=== PATIENT | female | born 1990 | race Hispanic/Latino ===

== ENCOUNTER 2021-04-18 23:26 | Inpatient (IN) | payer OTHER ==
[2021-04-18] MEDS ORDERED: Acetaminophen 325 MG TAB PO PRN (23:38)
[2021-04-18] MEDS ORDERED: Ondansetron ODT 4 MG TAB PO PRN (23:38)
[2021-04-19] MEDS: Lactated Ringer's 1,000 ML IV SCH ×3 (00:33→16:40)
[2021-04-19 00:46] VITALS: BMI 21.2
[2021-04-19] MEDS: Morphine 4 MG/ML VIAL SLOW IVP PRN ×3 (00:55→15:37)
[2021-04-19 02:32] LABS: SARS-CoV-2 NAA Rapid Test Not Detected (NotDetected)
[2021-04-19] MEDS: Prenatal Vitamin 1 TAB PO SCH (09:02)
[2021-04-19] MEDS ORDERED: Fentanyl 100 MCG/2 ML VIAL ONE (10:53)
[2021-04-19] MEDS ORDERED: PROPOFOL 20 ML ONE (10:53)
[2021-04-19] MEDS ORDERED: Midazolam HCl 2 mg/2 ml Vial ONE (10:54)
[2021-04-19] MEDS ORDERED: Glycopyrrolate 0.2 MG/ML 5 ML SYRINGE ONE (11:02)
[2021-04-19] MEDS ORDERED: Ondansetron PF 4 MG/2 ML Vial ONE ×2 (11:02→11:38)
[2021-04-19] MEDS ORDERED: Ketorolac Tromethamine 30 MG/ML VIAL ONE (11:38)
[2021-04-19] MEDS ORDERED: Dexamethasone 4 mg/ml Vial ONE (11:38)
[2021-04-19] MEDS ORDERED: CEFAZOLIN 1 GM VIAL ONE (11:55)
[2021-04-19] MEDS ORDERED: Promethazine HCl 25 MG/ML VIAL IVPB PRN (12:25)
[2021-04-19] MEDS ORDERED: Promethazine HCl 25 MG/ML VIAL IM PRN (12:25)
[2021-04-19] MEDS ORDERED: Ondansetron HCl/PF 4 MG/2 ML Vial IVP PRN (12:25)
[2021-04-19] MEDS ORDERED: Promethazine HCl 25 MG/ML VIAL ONE (12:41)
[2021-04-19] MEDS ORDERED: Morphine 4 MG/ML VIAL SLOW IVP SCH (22:15)
[2021-04-20] MEDS: Lactated Ringer's 1,000 ML IV SCH (04:16)
[2021-04-20] MEDS: Acetaminophen 325 MG TAB PO SCH ×2 (08:29→11:53)
[2021-04-20] MEDS: Prenatal Vitamin 1 TAB PO SCH (08:29)
[2021-04-20] MEDS ORDERED: FLU VACC QS2021-22(6MOS UP)/PF 60 MCG/0.5 ML SYRINGE IM ONE (09:00)
[2021-04-20] MEDS ORDERED: Morphine 4 MG/ML VIAL SLOW IVP SCH (09:00)
[2021-04-20] MEDS ORDERED: HYDROcodone/Acetaminophen 5/325 mg Tablet PO PRN (10:50)
[2021-04-20] MEDS ORDERED: Acetaminophen 325 MG TAB PO PRN (12:06)
[2021-04-20] MEDS: HYDROcodone/Acetaminophen 7.5/325 mg Tablet PO PRN ×2 (15:33→20:07)
[2021-04-20] MEDS ORDERED: Dicyclomine 20 MG TAB PO SCH (19:14)
[2021-04-20 22:11] LABS: Blood, Urine 250 (Negative); Clarity Bloody (Clear); Glucose, Urine (Dipstick) Normal (Negative); Protein, Urine (Dipstick) 100 mg/dl (Neg-Trace)
[2021-04-20 22:13] LABS: Leukocyte Unable to Interpret (Negative); Nitrite Unable to Interpret (Negative)
[2021-04-20 22:14] LABS: Bilirubin Unable to Interpret (Negative); Ketone, Urine Unable to Interpret mg/dL (Negative); Urobilinogen UNABLE TO INTERPRET mg/dL (Less than 2)
[2021-04-20 22:23] LABS: RBC/HPF Greater than 50 HPF (0-3)
[2021-04-20 22:24] LABS: Bacteria/HPF Rare-Few HPF (None Seen); Squamous Epithelial 0-3 HPF (0-3)
[2021-04-20 22:26] LABS: Urine Culture Reflex Yes Yes
[2021-04-21] MEDS ORDERED: Ketorolac Tromethamine 30 MG/ML VIAL IVP PRN (06:17)
[2021-04-21 07:46] VITALS: BP 101/55; TEMP 99.2
[2021-04-21] MEDS: Prenatal Vitamin 1 TAB PO SCH (08:31)
[2021-04-21] MEDS: Phenazopyridine HCl 97.5 MG TABLET PO SCH ×2 (08:31→14:51)
[2021-04-21] MEDS: HYDROcodone/Acetaminophen 7.5/325 mg Tablet PO PRN (08:31)
== END 2021-04-21 15:19 | disposition home or self-care (01) | DRG 818 ==
LOC: CSHPED 23:26
PROVIDERS: ADMIT Family Medicine; ATTEND Family Medicine
PROC: 0T768DZ Dilation of Right Ureter with Intraluminal Device, Via Natural or Artificial Opening Endoscopic (ICD-10-PCS; principal; 2021-04-19)
PROC: BT1D1ZZ Fluoroscopy of Right Kidney, Ureter and Bladder using Low Osmolar Contrast (ICD-10-PCS; 2021-04-19)
DX: O99.891 Other specified diseases and conditions complicating pregnancy (principal); N13.2 Hydronephrosis with renal and ureteral calculous obstruction; K21.9 Gastro-esophageal reflux disease without esophagitis; O99.611 Diseases of the digestive system complicating pregnancy, first trimester; Z20.822 Contact with and (suspected) exposure to COVID-19; Z3A.16 16 weeks gestation of pregnancy
CPT/HCPCS: 51600; 74430; 81001; 87086; 94760; C2625; J0690; J1100; J1885; J2250; J2270; J2405; J2550; J2704; J3010; J7120; Q0162; U0002

== ENCOUNTER 2021-05-01 19:22 | Observation (INO) | payer OTHER ==
[2021-05-01 19:49] VITALS: BMI 22.3
[2021-05-01] MEDS ORDERED: FLU VACC QS2021-22(6MOS UP)/PF 60 MCG/0.5 ML SYRINGE IM ONE (20:00)
[2021-05-01] MEDS ORDERED: Promethazine HCl 25 MG/ML VIAL IM PRN (20:10)
[2021-05-01] MEDS ORDERED: hydrALAZINE 20 MG/ML VIAL SLOW IVP PRN (20:10)
[2021-05-01] MEDS ORDERED: Ondansetron PF 4 MG/2 ML Vial IVP PRN (20:10)
[2021-05-01] MEDS ORDERED: Polyethylene Glycol 3350 17 GM Packet PO SCH (21:00)
[2021-05-01] MEDS: Acetaminophen 325 MG TAB PO PRN (21:11)
[2021-05-01 21:40] LABS: ALT (SGPT) 11 U/L (8-55); AST (SGOT) 10 U/L (5-34); Albumin 3.5 g/dL (3.5-5.0); Alkaline Phosphatase 62 U/L (40-110); Anion Gap 12 mmol/L (10-20); BUN (Urea Nitrogen) 10 mg/dL (7.0-18.7); Bilirubin, Total 0.1 mg/dL (0.2-1.2); Calc. Creatinine Clearance 101 mL/min (70-130); Calcium 8.5 mg/dL (7.8-10.44); Carbon Dioxide 19 mmol/L (22-29); Chloride 109 mmol/L (98-107); Globulin 2.6 g/dL (2.4-3.5); Glucose 102 mg/dL (70-105); Potassium 3.9 mmol/L (3.5-5.1); Protein, Total 6.1 g/dL (6.0-8.3); Sodium 136 mmol/L (136-145)
[2021-05-01 21:52] LABS: #Basophils 0.1 10x3/uL (0.0-0.2); #Eosinphils 0.2 10x3/uL (0.0-0.5); #Monocytes 0.5 10x3/uL (0.0-1.1); #Neutrophils 7.9 10x3/uL (1.5-8.4); %Basophils 0.5 % (0.0-2.0); %Eosinophils 2.1 % (0.0-6.0); %Lymphocytes 17.2 % (18.0-47.0); %Monocytes 4.6 % (0.0-10.0); %Neutrophils 75.3 % (40.0-75.0); Mean Corpuscular HGB CONC 31.5 g/dL (32.0-36.0); Mean Corpuscular Volume 82.6 fl (81.6-98.3); Mean Platelet Volume 8.6 fl (7.4-10.4); Platelet Count 461 10x3/uL (150-450); RBC Distribution Width 14.1 % (11.5-14.5); Red Blood Cell (RBC) Count 3.84 10x6/uL (3.90-5.03); White Blood Cell (WBC) Count 10.5 10x3/uL (3.5-10.5)
[2021-05-01] MEDS ORDERED: Ferrous Sulfate 325 MG TAB PO SCH (23:00)
[2021-05-02 04:51] LABS: Bilirubin Neg (Negative); Blood, Urine 250 (Negative); Clarity Cloudy (Clear); Glucose, Urine (Dipstick) Normal (Negative); Ketone, Urine Negative (Negative); Leukocyte 500 (Negative); Nitrite Positive (Negative); Protein, Urine (Dipstick) 500 mg/dl (Neg-Trace); Urobilinogen Normal mg/dL (Less than 2)
[2021-05-02 05:11] LABS: Bacteria/HPF Rare-Few HPF (None Seen); RBC/HPF Greater than 50 HPF (0-3)
[2021-05-02] MEDS ORDERED: Prenatal Vitamin 1 TAB PO SCH (09:00)
[2021-05-02] MEDS ORDERED: HYDROcodone/Acetaminophen 5/325 mg Tablet PO SCH (10:15)
[2021-05-02] MEDS: Acetaminophen 325 MG TAB PO PRN (10:17)
[2021-05-02] MEDS ORDERED: cefTRIAXone\\ROCEPHIN 1 GM in Sodium Chloride 0.9% 100 ML IVPB SCH (11:00)
[2021-05-02 12:09] VITALS: BP 130/64; TEMP 97.6
== END 2021-05-02 15:08 | disposition home or self-care (01) ==
LOC: CSHPP 19:22
PROVIDERS: ADMIT Student in an Organized Health Care Education/Training Program; ATTEND Student in an Organized Health Care Education/Training Program
DX: O23.42 Unspecified infection of urinary tract in pregnancy, second trimester (principal); O34.211 Maternal care for low transverse scar from previous cesarean delivery; O99.012 Anemia complicating pregnancy, second trimester; O99.612 Diseases of the digestive system complicating pregnancy, second trimester; N85.8 Other specified noninflammatory disorders of uterus; D50.9 Iron deficiency anemia, unspecified; K59.00 Constipation, unspecified; Z3A.18 18 weeks gestation of pregnancy; Z96.0 Presence of urogenital implants; Z87.59 Personal history of other complications of pregnancy, childbirth and the puerperium; Z79.899 Other long term (current) drug therapy; Z88.2 Allergy status to sulfonamides; Z88.6 Allergy status to analgesic agent
CPT/HCPCS: 76770; 80053; 81001; 85025; 87086; 96365; 96375; G0378; J0696; J2405; J3490

== ENCOUNTER 2021-05-12 00:41 | Emergency (ER) | payer OTHER | END 2021-05-12 01:26 | disposition home or self-care (01) | LOC: CSHERS 00:41 | DX: S70.01XA Contusion of right hip, initial encounter (principal); W01.0XXA Fall on same level from slipping, tripping and stumbling without subsequent striking against object, initial encounter | CPT/HCPCS: 99283 ==

== ENCOUNTER 2021-05-24 20:40 | Observation (INO) | payer OTHER ==
[2021-05-24 21:50] VITALS: BMI 21.2
[2021-05-24 22:58] LABS: #Eosinphils 0.7 10x3/uL (0.0-0.5); #Neutrophils 6.6 10x3/uL (1.5-8.4); %Basophils 0.4 % (0.0-2.0); %Eosinophils 6.3 % (0.0-6.0); %Lymphocytes 25.5 % (18.0-47.0); %Monocytes 8.7 % (0.0-10.0); %Neutrophils 57.6 % (40.0-75.0); Hemoglobin 7.8 g/dL (12.0-15.5); Mean Corpuscular HGB CONC 32.4 g/dL (32.0-36.0); Mean Corpuscular Hemoglobin 26.6 pg (27.0-33.0); Mean Corpuscular Volume 82.3 fl (81.6-98.3); Mean Platelet Volume 8.5 fl (7.4-10.4); Platelet Count 364 10x3/uL (150-450); Red Blood Cell (RBC) Count 2.93 10x6/uL (3.90-5.03); White Blood Cell (WBC) Count 11.4 10x3/uL (3.5-10.5)
[2021-05-24] MEDS ORDERED: Lactated Ringer's 1,000 ML IV SCH (23:00)
[2021-05-24 23:02] LABS: Bilirubin Neg (Negative); Blood, Urine 250 (Negative); Clarity Bloody (Clear); Glucose, Urine (Dipstick) Normal (Negative); Ketone, Urine Negative (Negative); Leukocyte 500 (Negative); Nitrite Negative (Negative); Protein, Urine (Dipstick) 100 mg/dl (Neg-Trace); Urobilinogen Normal mg/dL (Less than 2)
[2021-05-24 23:04] LABS: Bacteria/HPF None Seen HPF (None Seen); RBC/HPF Greater than 50 HPF (0-3); Squamous Epithelial None Seen HPF (0-3); WBC/HPF 21-50 HPF (0-3)
[2021-05-24 23:10] LABS: ALT (SGPT) 14 U/L (8-55); AST (SGOT) 12 U/L (5-34); Albumin 2.9 g/dL (3.5-5.0); Alkaline Phosphatase 58 U/L (40-110); Anion Gap 11 mmol/L (10-20); BUN (Urea Nitrogen) 13 mg/dL (7.0-18.7); Bilirubin, Total 0.1 mg/dL (0.2-1.2); Calc. Creatinine Clearance 121 mL/min (70-130); Carbon Dioxide 22 mmol/L (22-29); Chloride 109 mmol/L (98-107); Globulin 2.5 g/dL (2.4-3.5); Glucose 89 mg/dL (70-105); Potassium 3.6 mmol/L (3.5-5.1); Protein, Total 5.4 g/dL (6.0-8.3); Sodium 138 mmol/L (136-145)
[2021-05-24] MEDS ORDERED: Acetaminophen 500 MG TAB PO PRN (23:49)
[2021-05-24] MEDS ORDERED: Ondansetron PF 4 MG/2 ML Vial IVP PRN (23:49)
[2021-05-24] MEDS ORDERED: hydrALAZINE 20 MG/ML VIAL SLOW IVP PRN (23:49)
[2021-05-24] MEDS ORDERED: Promethazine HCl 25 MG/ML VIAL IM PRN (23:49)
[2021-05-24] MEDS ORDERED: Milk Of Magnesia 30 ML UDCUP PO PRN (23:58)
[2021-05-24] MEDS ORDERED: Docusate 100 MG CAP PO PRN (23:58)
[2021-05-24] MEDS ORDERED: HYDROcodone/Acetaminophen 5/325 mg Tablet PO PRN (23:59)
[2021-05-25] MEDS ORDERED: Acetaminophen 500 MG TAB PO SCH ×2 (05:45→08:30)
[2021-05-25] MEDS ORDERED: Iron Sucrose Complex 500 MG in Sodium Chloride 0.9% 250 ML 250 ML IVPB SCH (05:45)
[2021-05-25] MEDS: Cyclobenzaprine 10 MG TAB PO PRN (09:09)
[2021-05-25] MEDS ORDERED: Lactated Ringer's 500 ML IV PRN (14:04)
[2021-05-25] MEDS ORDERED: diphenhydrAMINE 50 MG/ML VIAL IVP PRN (14:04)
[2021-05-25] MEDS ORDERED: Naloxone HCl 0.4 mg/ml Vial IVP PRN ×2 (14:04)
[2021-05-25] MEDS ORDERED: Promethazine HCl 25 MG/ML VIAL IM PRN (14:04)
[2021-05-25] MEDS ORDERED: ePHEDrine Sulfate 50 MG/10 ML VIAL SLOW IVP PRN (14:04)
[2021-05-25] MEDS ORDERED: Acetaminophen 325 MG TAB PO PRN (14:04)
[2021-05-25] MEDS ORDERED: Ondansetron PF 4 MG/2 ML Vial IVP PRN (14:04)
[2021-05-25] MEDS ORDERED: Hydrocerin (Eucerin) Cream 120 gm Jar TOP PRN (14:04)
[2021-05-25] MEDS ORDERED: Communication Order-Pharmacy FS PRN (14:15)
[2021-05-25] MEDS ORDERED: Fentanyl 2 mcg/Bupivacaine 0.1% Cassette 100 ML EPIDURAL SCH (14:15)
[2021-05-25] MEDS ORDERED: Morphine 4 MG/ML VIAL ONE (14:29)
[2021-05-25] MEDS: HYDROcodone/Acetaminophen 5/325 mg Tablet PO PRN (15:27)
[2021-05-25] MEDS: Prenatal Vitamin 1 TAB PO SCH (21:10)
[2021-05-25] MEDS: Lactated Ringer's 1,000 ML IV SCH ×2 (21:10→21:47)
[2021-05-26] MEDS: Lactated Ringer's 1,000 ML IV SCH ×2 (04:30→12:38)
[2021-05-26] MEDS: Prenatal Vitamin 1 TAB PO SCH (08:26)
[2021-05-26] MEDS: HYDROcodone/Acetaminophen 5/325 mg Tablet PO PRN (08:27)
[2021-05-26] MEDS: Cyclobenzaprine 10 MG TAB PO PRN (08:33)
[2021-05-26] MEDS ORDERED: Ondansetron ODT 4 MG TAB SL PRN (09:31)
[2021-05-26 11:28] VITALS: BP 109/55; TEMP 98.3
== END 2021-05-26 17:10 | disposition home or self-care (01) ==
LOC: CSHLD/OP 20:40 → CSHLD 20:41 → INTOOBSV 20:41 → UNDOADMIN 20:41 → CSHANTE 05-25 20:45
PROVIDERS: ADMIT Student in an Organized Health Care Education/Training Program; ATTEND Student in an Organized Health Care Education/Training Program
DX: O99.891 Other specified diseases and conditions complicating pregnancy (principal); N13.2 Hydronephrosis with renal and ureteral calculous obstruction; R31.0 Gross hematuria; O23.592 Infection of other part of genital tract in pregnancy, second trimester; B96.89 Other specified bacterial agents as the cause of diseases classified elsewhere; O34.211 Maternal care for low transverse scar from previous cesarean delivery; O99.012 Anemia complicating pregnancy, second trimester; O99.612 Diseases of the digestive system complicating pregnancy, second trimester; K59.00 Constipation, unspecified; O99.282 Endocrine, nutritional and metabolic diseases complicating pregnancy, second trimester; E86.0 Dehydration; O09.292 Supervision of pregnancy with other poor reproductive or obstetric history, second trimester; Z3A.21 21 weeks gestation of pregnancy; Z79.2 Long term (current) use of antibiotics; Z79.899 Other long term (current) drug therapy; Z88.2 Allergy status to sulfonamides; Z88.6 Allergy status to analgesic agent
CPT/HCPCS: 36415; 74176; 76770; 80053; 81001; 85025; 86140; 87086; 96374; 96375; 99285; G0378; J1756; J2270; J7050; J7120; Q0162

== ENCOUNTER 2021-05-30 15:10 | Emergency (ER) | payer OTHER | END 2021-05-30 16:01 | disposition home or self-care (01) | LOC: CSHERS 15:10 | DX: O9A.212 Injury, poisoning and certain other consequences of external causes complicating pregnancy, second trimester (principal); S00.83XA Contusion of other part of head, initial encounter; Y04.8XXA Assault by other bodily force, initial encounter; Z3A.22 22 weeks gestation of pregnancy | CPT/HCPCS: 99284 ==

== ENCOUNTER 2021-06-14 11:55 | Day surgery (SDC) | payer OTHER ==
[2021-06-14 14:06] VITALS: BMI 23.8
[2021-06-14 14:15] LABS: Hemoglobin 9.8 g/dL (12.0-15.5); Mean Corpuscular HGB CONC 31.5 g/dL (32.0-36.0); Mean Corpuscular Hemoglobin 27.3 pg (27.0-33.0); Mean Corpuscular Volume 86.6 fl (81.6-98.3); Mean Platelet Volume 8.7 fl (7.4-10.4); Platelet Count 317 10x3/uL (150-450); Red Blood Cell (RBC) Count 3.59 10x6/uL (3.90-5.03); White Blood Cell (WBC) Count 7.8 10x3/uL (3.5-10.5)
== END 2021-06-14 16:24 | disposition home health service (06) ==
LOC: CSHLD/OP 11:55
PROVIDERS: ATTEND Obstetrics & Gynecology
DX: O99.012 Anemia complicating pregnancy, second trimester (principal); O34.211 Maternal care for low transverse scar from previous cesarean delivery; Z3A.24 24 weeks gestation of pregnancy; Z88.2 Allergy status to sulfonamides; Z88.6 Allergy status to analgesic agent
CPT/HCPCS: 36415; 82728; 85027; 99283

== ENCOUNTER 2021-07-14 21:18 | Observation (INO) | payer MEDICAID, OTHER ==
[2021-07-14 21:59] VITALS: BMI 24.7
[2021-07-14] MEDS ORDERED: hydrALAZINE 20 MG/ML VIAL SLOW IVP PRN (22:31)
[2021-07-14] MEDS ORDERED: Fentanyl 100 MCG/2 ML VIAL SLOW IVP PRN (22:41)
[2021-07-14] MEDS ORDERED: Promethazine HCl 12.5 MG, Admixture Fee 1 EACH in Sodium Chloride 0.9% 50 ML IVPB SCH (23:00)
[2021-07-14 23:13] LABS: #Eosinphils 0.3 10x3/uL (0.0-0.5); #Monocytes 0.8 10x3/uL (0.0-1.1); #Neutrophils 8.9 10x3/uL (1.5-8.4); %Basophils 0.3 % (0.0-2.0); %Eosinophils 2.6 % (0.0-6.0); %Lymphocytes 20.1 % (18.0-47.0); %Neutrophils 70.3 % (40.0-75.0); Hemoglobin 10.2 g/dL (12.0-15.5); Mean Corpuscular HGB CONC 32.3 g/dL (32.0-36.0); Mean Corpuscular Hemoglobin 27.1 pg (27.0-33.0); Mean Platelet Volume 8.9 fl (7.4-10.4); Platelet Count 327 10x3/uL (150-450); RBC Distribution Width 14.9 % (11.5-14.5); Red Blood Cell (RBC) Count 3.76 10x6/uL (3.90-5.03); White Blood Cell (WBC) Count 12.6 10x3/uL (3.5-10.5)
[2021-07-14] MEDS ORDERED: Ondansetron ODT 4 MG TAB PO PRN (23:15)
[2021-07-14] MEDS ORDERED: Lactated Ringer's 1,000 ML IV SCH (23:15)
[2021-07-14] MEDS ORDERED: Acetaminophen 500 MG TAB PO SCH (23:15)
[2021-07-14] MEDS ORDERED: Ventolin HFA Inhaler 60 PUFF INHALER INH PRN (23:23)
[2021-07-14 23:28] LABS: ALT (SGPT) 59 U/L (8-55); AST (SGOT) 26 U/L (5-34); Albumin 3.4 g/dL (3.5-5.0); Alkaline Phosphatase 82 U/L (40-110); Anion Gap 12 mmol/L (10-20); BUN (Urea Nitrogen) 6 mg/dL (7.0-18.7); Bilirubin, Total 0.2 mg/dL (0.2-1.2); Calc. Creatinine Clearance 136 mL/min (70-130); Calcium 8.7 mg/dL (7.8-10.44); Carbon Dioxide 24 mmol/L (22-29); Chloride 107 mmol/L (98-107); Globulin 2.6 g/dL (2.4-3.5); Glucose 81 mg/dL (70-105); Potassium 3.6 mmol/L (3.5-5.1); Sodium 139 mmol/L (136-145)
[2021-07-15 00:26] LABS: Bilirubin Neg (Negative); Blood, Urine Negative (Negative); Clarity Slightly Cloudy (Clear); Glucose, Urine (Dipstick) Normal (Negative); Ketone, Urine Negative (Negative); Leukocyte Negative (Negative); Nitrite Negative (Negative); Protein, Urine (Dipstick) Negative (Neg-Trace); Urobilinogen Normal mg/dL (Less than 2)
[2021-07-15 00:28] LABS: Bacteria/HPF None Seen HPF (None Seen); RBC/HPF 0-3 HPF (0-3); Squamous Epithelial 0-3 HPF (0-3); WBC/HPF 0-3 HPF (0-3)
[2021-07-15] MEDS: Lactated Ringer's 1,000 ML IV SCH ×3 (03:11→21:50)
[2021-07-15] MEDS: Acetaminophen 325 MG TAB PO PRN (10:27)
[2021-07-15 15:26] LABS: HBCM Index 0.07 S/CO (0-0.79); HBSAg Index 0.26 S/CO (0-0.99); Hep A IgM AB Non-Reactive (NonReactive); Hep A IgM S/CO 0.24 S/CO (0-0.79); Hep B Surf Ag Non-Reactive S/CO (NonReactive); Hep C IgG Ab Non-Reactive (NonReactive); Hep C Index 0.06 S/CO (0-0.79); Hepatitis B Core IgM Abs Non-Reactive (NonReactive)
[2021-07-15 19:40] LABS: #Eosinphils 0.1 10x3/uL (0.0-0.5); #Monocytes 0.5 10x3/uL (0.0-1.1); #Neutrophils 4.6 10x3/uL (1.5-8.4); %Basophils 0.5 % (0.0-2.0); %Eosinophils 1.7 % (0.0-6.0); %Lymphocytes 16.4 % (18.0-47.0); %Monocytes 8.5 % (0.0-10.0); %Neutrophils 72.3 % (40.0-75.0); Hemoglobin 9.8 g/dL (12.0-15.5); Mean Corpuscular HGB CONC 32.6 g/dL (32.0-36.0); Mean Corpuscular Hemoglobin 27.2 pg (27.0-33.0); Mean Corpuscular Volume 83.6 fl (81.6-98.3); Mean Platelet Volume 8.7 fl (7.4-10.4); Platelet Count 279 10x3/uL (150-450); RBC Distribution Width 14.9 % (11.5-14.5); White Blood Cell (WBC) Count 6.3 10x3/uL (3.5-10.5)
[2021-07-15 19:53] LABS: ALT (SGPT) 52 U/L (8-55); AST (SGOT) 26 U/L (5-34); Albumin 2.9 g/dL (3.5-5.0); Alkaline Phosphatase 83 U/L (40-110); Anion Gap 10 mmol/L (10-20); BUN (Urea Nitrogen) 5 mg/dL (7.0-18.7); Bilirubin, Total 0.3 mg/dL (0.2-1.2); Calc. Creatinine Clearance 132 mL/min (70-130); Calcium 8.4 mg/dL (7.8-10.44); Carbon Dioxide 21 mmol/L (22-29); Chloride 110 mmol/L (98-107); Globulin 2.7 g/dL (2.4-3.5); Glucose 114 mg/dL (70-105); Potassium 3.4 mmol/L (3.5-5.1); Protein, Total 5.6 g/dL (6.0-8.3); Sodium 138 mmol/L (136-145)
[2021-07-16] MEDS: Acetaminophen 325 MG TAB PO PRN (05:39)
[2021-07-16] MEDS ORDERED: Potassium Chloride 20 MEQ TAB PO SCH (07:00)
[2021-07-16] MEDS: Lactated Ringer's 1,000 ML IV SCH (08:33)
[2021-07-16] MEDS ORDERED: Prenatal Vitamin 1 TAB PO SCH (09:00)
[2021-07-16 11:26] VITALS: BP 109/56; TEMP 97.7
[2021-07-17] MEDS ORDERED: Ferrous Sulfate 325 MG TAB PO SCH (08:00)
== END 2021-07-16 12:45 | disposition home health service (06) ==
LOC: CSHLD/OP 21:18 → CSHANTE 07-15 02:59
PROVIDERS: ADMIT Family Medicine; ATTEND Student in an Organized Health Care Education/Training Program
DX: O99.891 Other specified diseases and conditions complicating pregnancy (principal); N13.2 Hydronephrosis with renal and ureteral calculous obstruction; R74.01 Elevation of levels of liver transaminase levels; O34.211 Maternal care for low transverse scar from previous cesarean delivery; O99.013 Anemia complicating pregnancy, third trimester; Z86.16 Personal history of COVID-19; Z3A.28 28 weeks gestation of pregnancy; Z88.2 Allergy status to sulfonamides; Z88.6 Allergy status to analgesic agent
CPT/HCPCS: 71045; 76705; 76770; 76815; 76819; 80053; 80074; 81001; 85025; 86140; 87086; G0378; J2550; J3010; J7120

== ENCOUNTER 2021-07-29 09:04 | Outpatient (CLI) | payer OTHER ==
[2021-07-29 17:42] LABS: SARS-CoV-2 PCR by NAA Not Detected (NotDetected)
== END 2021-07-29 09:05 | disposition home or self-care (01) ==
LOC: CSHLAB 09:04
PROVIDERS: ATTEND Obstetrics & Gynecology
DX: Z20.822 Contact with and (suspected) exposure to COVID-19 (principal)
CPT/HCPCS: U0003; U0005

== ENCOUNTER 2021-08-01 08:02 | Day surgery (SDC) | payer OTHER ==
[2021-08-01 08:19] VITALS: BMI 25.4
[2021-08-01] MEDS ORDERED: diphenhydrAMINE 50 MG/ML VIAL IVP SCH (08:30)
[2021-08-01] MEDS ORDERED: Acetaminophen 325 MG/10.15 ML UDCUP PO SCH (08:30)
[2021-08-01] MEDS ORDERED: Iron Sucrose Complex 500 MG in Sodium Chloride 0.9% 250 ML 250 ML IVPB SCH (08:45)
[2021-08-01] MEDS ORDERED: Acetaminophen 500 MG TAB PO SCH (09:15)
== END 2021-08-01 14:18 | disposition home or self-care (01) ==
LOC: CSHLD/OP 08:02
PROVIDERS: ATTEND Obstetrics & Gynecology
DX: O99.013 Anemia complicating pregnancy, third trimester (principal); O34.219 Maternal care for unspecified type scar from previous cesarean delivery; Z3A.31 31 weeks gestation of pregnancy; Z86.16 Personal history of COVID-19; Z87.442 Personal history of urinary calculi; Z88.2 Allergy status to sulfonamides; Z88.6 Allergy status to analgesic agent
CPT/HCPCS: 96365; 96366; 96375; 99282; J1200; J1756; J7050

== ENCOUNTER 2022-04-12 09:40 | Emergency (ER) | payer OTHER ==
[2022-04-12 10:09] LABS: Bilirubin Neg (Negative); Blood, Urine 250 (Negative); Glucose, Urine (Dipstick) Normal (Negative); Ketone, Urine 150 mg/dL (Negative); Leukocyte 25 (Negative); Nitrite Negative (Negative); Protein, Urine (Dipstick) 30 mg/dl (Neg-Trace); Specific Gravity, Urine 1.025 (1.005-1.030); Urobilinogen Normal mg/dL (Less than 2)
[2022-04-12 10:13] LABS: Clarity Slightly Cloudy (Clear)
[2022-04-12 10:15] LABS: #Basophils 0.1 10x3/uL (0.0-0.2); #Eosinphils 0.7 10x3/uL (0.0-0.5); #Monocytes 0.6 10x3/uL (0.0-1.1); %Basophils 0.6 % (0.0-2.0); %Eosinophils 8.5 % (0.0-6.0); %Lymphocytes 24.5 % (18.0-47.0); %Monocytes 6.6 % (0.0-10.0); %Neutrophils 59.6 % (40.0-75.0); Hemoglobin 12.4 g/dL (12.0-15.5); Mean Corpuscular HGB CONC 34.7 g/dL (32.0-36.0); Mean Corpuscular Hemoglobin 28.5 pg (27.0-33.0); Mean Corpuscular Volume 82.1 fl (81.6-98.3); Mean Platelet Volume 8.8 fl (7.4-10.4); Platelet Count 378 10x3/uL (150-450); RBC Distribution Width 13.4 % (11.5-14.5); Red Blood Cell (RBC) Count 4.35 10x6/uL (3.90-5.03); White Blood Cell (WBC) Count 8.3 10x3/uL (3.5-10.5)
[2022-04-12 10:19] LABS: Bacteria/HPF Rare-Few HPF (None Seen); Mucous/LPF 3+ LPF (<2+); RBC/HPF 0-3 HPF (0-3)
[2022-04-12 10:50] LABS: ALT (SGPT) 27 U/L (8-55); AST (SGOT) 24 U/L (5-34); Albumin 3.8 g/dL (3.5-5.0); Alkaline Phosphatase 59 U/L (40-110); Anion Gap 14 mmol/L (10-20); BUN (Urea Nitrogen) 8 mg/dL (7.0-18.7); Bilirubin, Total 0.4 mg/dL (0.2-1.2); Calc. Creatinine Clearance 0 mL/min (70-130); Calcium 8.9 mg/dL (7.8-10.44); Carbon Dioxide 21 mmol/L (22-29); Chloride 107 mmol/L (98-107); Estimated GFR 121; Glucose 85 mg/dL (70-105); Potassium 3.8 mmol/L (3.5-5.1); Protein, Total 6.8 g/dL (6.0-8.3); Sodium 138 mmol/L (136-145)
[2022-04-12 11:45] LABS: Bilirubin Neg (Negative); Blood, Urine 150 (Negative); Glucose, Urine (Dipstick) Normal (Negative); Ketone, Urine 150 mg/dL (Negative); Leukocyte 25 (Negative); Nitrite Negative (Negative); Protein, Urine (Dipstick) 15 mg/dl (Neg-Trace); Specific Gravity, Urine 1.025 (1.005-1.030); Urobilinogen Normal mg/dL (Less than 2)
[2022-04-12 11:57] LABS: Clarity Slightly Cloudy (Clear)
[2022-04-12 12:52] LABS: RBC/HPF 0-3 HPF (0-3); WBC/HPF 0-3 HPF (0-3)
[2022-04-12 12:53] LABS: Bacteria/HPF Rare-Few HPF (None Seen); Mucous/LPF 1+ LPF (<2+)
== END 2022-04-12 13:15 | disposition home or self-care (01) ==
LOC: CSHERS 09:40
DX: O20.0 Threatened abortion (principal); Z3A.13 13 weeks gestation of pregnancy
CPT/HCPCS: 36415; 76805; 80053; 81003; 81015; 84702; 85025; 86900; 86901

== ENCOUNTER 2022-08-18 18:15 | Day surgery (SDC) | payer OTHER ==
[2022-08-18 18:51] VITALS: BMI 27.4
[2022-08-18] MEDS ORDERED: hydrALAZINE 20 MG/ML VIAL SLOW IVP PRN (20:15)
[2022-08-18] MEDS ORDERED: Metoclopramide HCl 10 MG/2 ML VIAL IVP SCH (21:00)
[2022-08-18] MEDS ORDERED: Lactated Ringer's 1,000 ML IV SCH ×2 (21:00→21:15)
[2022-08-18] MEDS ORDERED: diphenhydrAMINE 50 MG/ML VIAL IVP SCH ×2 (21:00→22:00)
[2022-08-18 21:15] LABS: #Eosinphils 0.5 10x3/uL (0.0-0.5); #Monocytes 0.7 10x3/uL (0.0-1.1); #Neutrophils 3.8 10x3/uL (1.5-8.4); %Basophils 0.5 % (0.0-2.0); %Eosinophils 7.1 % (0.0-6.0); %Lymphocytes 32.2 % (18.0-47.0); %Monocytes 9.3 % (0.0-10.0); %Neutrophils 50.6 % (40.0-75.0); Hemoglobin 10.8 g/dL (12.0-15.5); Mean Corpuscular HGB CONC 33.8 g/dL (32.0-36.0); Mean Corpuscular Hemoglobin 28.6 pg (27.0-33.0); Mean Corpuscular Volume 84.7 fl (81.6-98.3); Mean Platelet Volume 9.3 fl (7.4-10.4); Platelet Count 280 10x3/uL (150-450); RBC Distribution Width 12.6 % (11.5-14.5); Red Blood Cell (RBC) Count 3.78 10x6/uL (3.90-5.03); White Blood Cell (WBC) Count 7.5 10x3/uL (3.5-10.5)
[2022-08-18 21:28] LABS: ALT (SGPT) 23 U/L (8-55); AST (SGOT) 20 U/L (5-34); Alkaline Phosphatase 67 U/L (40-110); Anion Gap 12 mmol/L (10-20); BUN (Urea Nitrogen) 11 mg/dL (7.0-18.7); Bilirubin, Total 0.1 mg/dL (0.2-1.2); Calc. Creatinine Clearance 147 mL/min (70-130); Calcium 8.5 mg/dL (7.8-10.44); Carbon Dioxide 20 mmol/L (22-29); Chloride 109 mmol/L (98-107); Estimated GFR 124; Globulin 2.9 g/dL (2.4-3.5); Glucose 92 mg/dL (70-105); Potassium 3.4 mmol/L (3.5-5.1); Protein, Total 5.9 g/dL (6.0-8.3); Sodium 138 mmol/L (136-145)
[2022-08-18 21:55] LABS: Bilirubin Neg (Negative); Blood, Urine 25 (Negative); Clarity Slightly Cloudy (Clear); Glucose, Urine (Dipstick) Normal (Negative); Ketone, Urine Negative (Negative); Leukocyte Negative (Negative); Nitrite Negative (Negative); Protein, Urine (Dipstick) Negative (Neg-Trace); Urobilinogen Normal mg/dL (Less than 2)
[2022-08-18 22:20] LABS: CAUTI Indications for Culture Pregnancy
[2022-08-18 22:23] LABS: Bacteria/HPF 3+ HPF (None Seen); Mucous/LPF 1+ LPF (<2+)
[2022-08-18 22:25] LABS: Urine Culture Reflex Yes Yes
== END 2022-08-19 00:45 | disposition home or self-care (01) ==
LOC: CSHLD/OP 18:15
PROVIDERS: ATTEND Obstetrics & Gynecology
DX: O99.891 Other specified diseases and conditions complicating pregnancy (principal); R51.9 Headache, unspecified; H10.9 Unspecified conjunctivitis; O21.2 Late vomiting of pregnancy; O99.013 Anemia complicating pregnancy, third trimester; D64.9 Anemia, unspecified; O99.613 Diseases of the digestive system complicating pregnancy, third trimester; K21.9 Gastro-esophageal reflux disease without esophagitis; O34.211 Maternal care for low transverse scar from previous cesarean delivery; Z79.899 Other long term (current) drug therapy; Z88.2 Allergy status to sulfonamides; Z88.8 Allergy status to other drugs, medicaments and biological substances; Z3A.32 32 weeks gestation of pregnancy
CPT/HCPCS: 36415; 51701; 76705; 80053; 81001; 85025; 87086; 96360; 96361; 96375; 99283; J1200; J2765

== ENCOUNTER 2022-08-31 15:24 | Inpatient (IN) | payer OTHER ==
[2022-08-31] MEDS ORDERED: Tranexamic Acid 1,000 MG in Sodium Chloride 0.9% 250 ML 250 ML IVPB PRN (15:26)
[2022-08-31] MEDS ORDERED: Diphenoxylate HCl/Atropine Tablet PO PRN (15:26)
[2022-08-31] MEDS ORDERED: Promethazine HCl 25 MG/ML VIAL IM PRN ×2 (15:26→16:18)
[2022-08-31] MEDS ORDERED: Acetaminophen 500 MG TAB PO PRN (15:26)
[2022-08-31] MEDS ORDERED: Ondansetron PF 4 MG/2 ML Vial IVP PRN ×3 (15:26→19:01)
[2022-08-31] MEDS ORDERED: Carboprost 250 MCG/ML AMP IM PRN (15:26)
[2022-08-31] MEDS ORDERED: Misoprostol 200 MCG TAB PR PRN ×2 (15:26→19:01)
[2022-08-31] MEDS ORDERED: Famotidine/PF 20 mg/2ml Vial SLOW IVP PRN (15:26)
[2022-08-31] MEDS ORDERED: Bicitra 30 ML UDCUP PO PRN (15:26)
[2022-08-31] MEDS ORDERED: hydrALAZINE 20 MG/ML VIAL SLOW IVP PRN ×2 (15:26→19:01)
[2022-08-31] MEDS ORDERED: Methylergonovine 0.2 MG/ML VIAL IM PRN ×2 (15:26→19:01)
[2022-08-31] MEDS ORDERED: CEFAZOLIN 2 GM in Sodium Chloride 0.9% 100 ML IVPB SCH (15:30)
[2022-08-31] MEDS ORDERED: NS w/ Oxytocin 30 units 500 ML IV SCH ×2 (15:30→19:15)
[2022-08-31 15:53] VITALS: BMI 25.6
[2022-08-31] MEDS ORDERED: Naloxone HCl 0.4 mg/ml Vial IVP PRN ×2 (16:18)
[2022-08-31] MEDS ORDERED: Promethazine HCl 25 MG SUPP PR PRN (16:18)
[2022-08-31] MEDS ORDERED: Meperidine HCl/PF 25 MG/ML VIAL SLOW IVP PRN (16:18)
[2022-08-31] MEDS ORDERED: HYDROmorphone 2 MG/ML VIAL SLOW IVP PRN (16:18)
[2022-08-31] MEDS ORDERED: diphenhydrAMINE 50 MG/ML VIAL IVP PRN (16:18)
[2022-08-31] MEDS ORDERED: Moisturizing Cream (Eucerin) 113 GM JAR TOP PRN (16:18)
[2022-08-31] MEDS ORDERED: Fentanyl 100 MCG/2 ML VIAL SLOW IVP PRN (16:18)
[2022-08-31] MEDS ORDERED: Ondansetron HCl/PF 4 MG/2 ML Vial IVP PRN (16:18)
[2022-08-31] MEDS ORDERED: Naloxone HCl 0.4 mg/ml Vial IV PRN (16:18)
[2022-08-31] MEDS ORDERED: Phenylephrine 40 MG/NS 250 ML 250 ML ONE (16:26)
[2022-08-31] MEDS ORDERED: Metoclopramide HCl 10 MG/2 ML VIAL ONE (16:27)
[2022-08-31] MEDS ORDERED: PHENYLEPHRINE-NS 100 MCG/ML 10 ML SYRINGE ONE (16:27)
[2022-08-31] MEDS ORDERED: Promethazine HCl 25 MG/ML VIAL ONE (16:27)
[2022-08-31] MEDS ORDERED: Ondansetron PF 4 MG/2 ML Vial ONE (16:27)
[2022-08-31] MEDS ORDERED: Oxytocin 10 UNITS/ML VIAL ONE (16:27)
[2022-08-31] MEDS ORDERED: Communication Order-Pharmacy FS SCH (16:30)
[2022-08-31] MEDS ORDERED: Morphine PF 10 MG/10 ML VIAL ONE (16:33)
[2022-08-31] MEDS ORDERED: ePHEDrine Sulfate 50 MG/10 ML VIAL ONE (16:34)
[2022-08-31] MEDS ORDERED: Fentanyl 100 MCG/2 ML VIAL ONE ×2 (16:34→18:34)
[2022-08-31 16:39] LABS: Hemoglobin 12.3 g/dL (12.0-15.5); Mean Corpuscular HGB CONC 33.4 g/dL (32.0-36.0); Mean Corpuscular Hemoglobin 28.7 pg (27.0-33.0); Mean Corpuscular Volume 85.8 fl (81.6-98.3); Mean Platelet Volume 9.2 fl (7.4-10.4); Platelet Count 320 10x3/uL (150-450); RBC Distribution Width 12.7 % (11.5-14.5); Red Blood Cell (RBC) Count 4.29 10x6/uL (3.90-5.03); White Blood Cell (WBC) Count 7.1 10x3/uL (3.5-10.5)
[2022-08-31 16:52] LABS: Syphilis Antibody Nonreactive (Nonreactive); Syphilis Antibody Index 0.04 S/CO (<1.00 Non-Reactive)
[2022-08-31 16:54] LABS: HBSAg Index 0.14 S/CO (0-0.99); Hep B Surf Ag Non-Reactive S/CO (NonReactive)
[2022-08-31] MEDS ORDERED: PROPOFOL 20 ML ONE (17:49)
[2022-08-31] MEDS ORDERED: Boostrix 0.5 ML (Tdap) VIAL (>/=7 yrs of age) IM ONE (19:01)
[2022-08-31] MEDS ORDERED: Lanolin Ointment 7 GM TUBE TOP PRN (19:01)
[2022-08-31] MEDS ORDERED: diphenhydrAMINE 25 MG CAP PO PRN (19:01)
[2022-09-01 04:13] LABS: Mean Corpuscular HGB CONC 33.5 g/dL (32.0-36.0); Mean Corpuscular Hemoglobin 29.2 pg (27.0-33.0); Mean Platelet Volume 9.3 fl (7.4-10.4); Platelet Count 261 10x3/uL (150-450); RBC Distribution Width 12.8 % (11.5-14.5); Red Blood Cell (RBC) Count 3.77 10x6/uL (3.90-5.03); White Blood Cell (WBC) Count 7.4 10x3/uL (3.5-10.5)
[2022-09-01] MEDS ORDERED: Ketorolac Tromethamine 30 MG/ML VIAL ONE (07:19)
[2022-09-01] MEDS: HYDROcodone/Acetaminophen 5/325 mg Tablet PO PRN ×3 (09:37→19:46)
[2022-09-01] MEDS: Lactated Ringer's 1,000 ML IV SCH ×2 (15:13→20:30)
[2022-09-01] MEDS: Simethicone Chewable 80 MG TAB PO PRN (19:46)
[2022-09-01] MEDS: Ferrous Sulfate 325 MG TAB PO SCH (20:29)
[2022-09-01] MEDS: Prenatal Vitamin 1 TAB PO SCH (20:30)
[2022-09-01] MEDS ORDERED: Cyclobenzaprine 10 MG TAB PO PRN (21:28)
[2022-09-02] MEDS: HYDROcodone/Acetaminophen 5/325 mg Tablet PO PRN ×4 (01:07→18:39)
[2022-09-02] MEDS: Simethicone Chewable 80 MG TAB PO PRN ×2 (01:07→06:09)
[2022-09-02] MEDS: Ibuprofen 800 MG TAB PO SCH ×2 (11:49→19:12)
[2022-09-02] MEDS: diphenhydrAMINE 25 MG CAP PO SCH ×2 (11:50→19:12)
[2022-09-02 12:01] LABS: Hemoglobin 11.7 g/dL (12.0-15.5); Mean Corpuscular HGB CONC 33.3 g/dL (32.0-36.0); Mean Corpuscular Volume 87.1 fl (81.6-98.3); Platelet Count 288 10x3/uL (150-450); RBC Distribution Width 12.8 % (11.5-14.5); Red Blood Cell (RBC) Count 4.03 10x6/uL (3.90-5.03); White Blood Cell (WBC) Count 9.1 10x3/uL (3.5-10.5)
[2022-09-02] MEDS: Lactated Ringer's 1,000 ML IV SCH ×2 (19:11→19:12)
[2022-09-02] MEDS: Ferrous Sulfate 325 MG TAB PO SCH (19:12)
[2022-09-02] MEDS: Prenatal Vitamin 1 TAB PO SCH (19:12)
[2022-09-03] MEDS: Ibuprofen 800 MG TAB PO SCH (02:57)
[2022-09-03] MEDS: diphenhydrAMINE 25 MG CAP PO SCH (02:57)
[2022-09-03] MEDS: HYDROcodone/Acetaminophen 5/325 mg Tablet PO PRN ×2 (04:53→09:22)
== END 2022-09-03 12:00 | disposition home or self-care (01) | DRG 788 ==
LOC: CSHLD 15:24
PROVIDERS: ADMIT Family Medicine; ATTEND Family Medicine
PROC: 10D00Z1 Extraction of Products of Conception, Low, Open Approach (ICD-10-PCS; principal; 2022-08-31)
PROC: 3E0P05Z Introduction of Adhesion Barrier into Female Reproductive, Open Approach (ICD-10-PCS; 2022-08-31)
DX: O36.4XX0 Maternal care for intrauterine death, not applicable or unspecified (principal); Z3A.32 32 weeks gestation of pregnancy; Z37.1 Single stillbirth; O34.211 Maternal care for low transverse scar from previous cesarean delivery; Z87.442 Personal history of urinary calculi; Z83.3 Family history of diabetes mellitus; Z80.0 Family history of malignant neoplasm of digestive organs; Z87.440 Personal history of urinary (tract) infections; O69.89X0 Labor and delivery complicated by other cord complications, not applicable or unspecified; N99.4 Postprocedural pelvic peritoneal adhesions; O99.892 Other specified diseases and conditions complicating childbirth
CPT/HCPCS: 36415; 51702; 85027; 85460; 86780; 86850; 86900; 86901; 87340; 88305; 88307; J1200; J2274; J2405; J2550; J2590; J2704; J2765; J3010; J7120

== ENCOUNTER 2024-07-20 17:36 | Emergency (ER) | payer MEDICAID ==
[2024-07-20] MEDS ORDERED: Fluorescein Opthalmic Strip ONE (18:25)
[2024-07-20] MEDS ORDERED: Proparacaine 0.5% Opth 15 ML BOT ONE (18:25)
== END 2024-07-20 18:51 | disposition home or self-care (01) ==
LOC: CSHERS 17:36
DX: O99.891 Other specified diseases and conditions complicating pregnancy (principal); H10.9 Unspecified conjunctivitis; Z87.891 Personal history of nicotine dependence; Z3A.13 13 weeks gestation of pregnancy
CPT/HCPCS: 99283

== ENCOUNTER 2025-01-19 14:32 | Inpatient (IN) | payer MEDICAID ==
[2025-01-19 14:52] VITALS: BMI 27.4
[2025-01-19] MEDS ORDERED: Ondansetron PF 4 MG/2 ML Vial IVP PRN (16:40)
[2025-01-19] MEDS ORDERED: hydrALAZINE 20 MG/ML VIAL SLOW IVP PRN (16:40)
[2025-01-19] MEDS ORDERED: Famotidine/PF 20 mg/2ml Vial SLOW IVP PRN (18:16)
[2025-01-19] MEDS ORDERED: Bicitra 30 ML UDCUP PO PRN (18:16)
[2025-01-19 18:25] LABS: Hematocrit 27.3 % (34.9-44.5); Hemoglobin 8.6 g/dL (12.0-15.5); Mean Corpuscular Hemoglobin 23.6 pg (27.0-33.0); Mean Corpuscular Volume 75.0 fL (81.6-98.3); Platelet Count 284 10x3/uL (150-450); Red Blood Cell (RBC) Count 3.64 10x6/uL (3.90-5.03); White Blood Cell (WBC) Count 9.91 10x3/uL (3.5-10.5)
[2025-01-19] MEDS: Acetaminophen 500 MG TAB PO PRN (22:09)
[2025-01-19 22:50] LABS: Syphilis Antibody Index 0.06 S/CO (<1.00 Non-Reactive)
[2025-01-19 22:52] LABS: Hep B Surf Ag - L&D Non-Reactive S/CO (NonReactive)
[2025-01-20] MEDS ORDERED: Bicitra 30 ML UDCUP PO PRN (07:21)
[2025-01-20] MEDS ORDERED: Famotidine/PF 20 mg/2ml Vial SLOW IVP PRN (07:21)
[2025-01-20] MEDS ORDERED: diphenhydrAMINE 50 MG/ML VIAL IVP PRN (08:43)
[2025-01-20] MEDS ORDERED: Ondansetron PF 4 MG/2 ML Vial IVP PRN (08:43)
[2025-01-20] MEDS ORDERED: Meperidine HCl/PF 25 MG (1 mL) VIAL SLOW IVP PRN (08:43)
[2025-01-20] MEDS ORDERED: Communication Order-Pharmacy FS SCH (08:45)
[2025-01-20] MEDS ORDERED: Ketorolac Tromethamine 30 MG (1 mL) VIAL IVP SCH (08:45)
[2025-01-20] MEDS: Oxytocin 30 units/NS 500 ML 500 ML IV SCH (10:00)
[2025-01-20] MEDS ORDERED: Methylergonovine 0.2 MG/ML VIAL IM PRN (12:34)
[2025-01-20] MEDS ORDERED: hydrALAZINE 20 MG/ML VIAL SLOW IVP PRN (12:34)
[2025-01-20] MEDS ORDERED: Lanolin Ointment 7 GM TUBE TOP PRN (12:34)
[2025-01-20] MEDS ORDERED: diphenhydrAMINE 25 MG CAP PO PRN (12:34)
[2025-01-20] MEDS ORDERED: Oxytocin 30 units/NS 500 ML 500 ML IV SCH (12:34)
[2025-01-20] MEDS ORDERED: Bisacodyl 10 MG SUPP PR PRN (12:34)
[2025-01-20] MEDS: Ferrous Sulfate 325 MG TAB PO SCH ×2 (13:51→21:00)
[2025-01-20] MEDS: Ketorolac Tromethamine 30 MG (1 mL) VIAL IVP SCH (14:52)
[2025-01-20] MEDS: Ibuprofen 800 MG TAB PO SCH (16:23)
[2025-01-20] MEDS: Ketorolac Tromethamine 30 MG (1 mL) VIAL ONE (19:25)
[2025-01-20] MEDS: Oxytocin 10 UNITS/ML VIAL ONE (19:40)
[2025-01-20] MEDS: CEFAZOLIN 2 GM VIAL ONE (19:40)
[2025-01-20] MEDS: Ondansetron PF 4 MG/2 ML Vial ONE (19:40)
[2025-01-20] MEDS: PHENYLEPHRINE-NS 100 MCG/ML 10 ML SYRINGE ONE ×3 (19:41)
[2025-01-20] MEDS ORDERED: HYDROcodone/Acetaminophen 5/325 mg Tablet PO PRN (20:46)
[2025-01-20] MEDS: HYDROcodone/Acetaminophen 5/325 mg Tablet PO PRN (22:19)
[2025-01-21] MEDS: Simethicone Chewable 80 MG TAB PO PRN (00:22)
[2025-01-21 05:49] LABS: Hematocrit 23.0 % (34.9-44.5); Hemoglobin 7.1 g/dL (12.0-15.5); Mean Corpuscular Hemoglobin 23.5 pg (27.0-33.0); Mean Corpuscular Volume 76.2 fL (81.6-98.3); Platelet Count 262 10x3/uL (150-450); Red Blood Cell (RBC) Count 3.02 10x6/uL (3.90-5.03); White Blood Cell (WBC) Count 13.14 10x3/uL (3.5-10.5)
[2025-01-21] MEDS: Boostrix 0.5 ML (Tdap) VIAL (>/=7 yrs of age) IM ONE (07:07)
[2025-01-21 10:43] LABS: Anion Gap 11 mmol/L (10-20); BUN (Urea Nitrogen) 11 mg/dL (7.0-18.7); Calc. Creatinine Clearance 160 mL/min (70-130); Calcium 8.4 mg/dL (7.8-10.44); Carbon Dioxide 24 mmol/L (22-29); Chloride 108 mmol/L (98-107); Glucose 99 mg/dL (70-105); Magnesium 1.6 mg/dL (1.6-2.6); Potassium 3.5 mmol/L (3.5-5.1); Sodium 139 mmol/L (136-145)
[2025-01-21] MEDS ORDERED: Measles/Mumps/Rubella 10 MCG/0.5 ML VIAL SC ONE (13:02)
[2025-01-21] MEDS: Acetaminophen 500 MG TAB PO SCH (15:41)
[2025-01-21] MEDS: Iron Sucrose Complex 500 MG in Sodium Chloride 0.9% 250 ML 250 ML IVPB SCH (16:09)
[2025-01-21] MEDS: Transdermal Patch Removal TOP SCH (17:38)
[2025-01-22 06:29] LABS: #Basophils Less than 0.03 10x3/uL (0.0-0.2); #Eosinophils 0.38 10x3/uL (0.0-0.5); #Monocytes 1.03 10x3/uL (0.0-1.1); #Neutrophils 9.50 10x3/uL (1.5-8.4); %Basophils 0.1 % (0.0-2.0); %Eosinophils 2.8 % (0.0-6.0); %Lymphocytes 17.7 % (18.0-47.0); %Monocytes 7.6 % (0.0-10.0); %Neutrophils 70.6 % (40.0-75.0); Hematocrit 25.3 % (34.9-44.5); Hemoglobin 7.7 g/dL (12.0-15.5); Mean Corpuscular Hemoglobin 23.2 pg (27.0-33.0); Mean Corpuscular Volume 76.2 fL (81.6-98.3); Platelet Count 299 10x3/uL (150-450); Red Blood Cell (RBC) Count 3.32 10x6/uL (3.90-5.03); White Blood Cell (WBC) Count 13.47 10x3/uL (3.5-10.5)
[2025-01-22 06:59] LABS: ALT (SGPT) 9 U/L (Less than 34); AST (SGOT) 18 U/L (11-34); Albumin 2.3 g/dL (3.1-4.5); Alkaline Phosphatase 94 U/L (40-110); Anion Gap 14 mmol/L (10-20); BUN (Urea Nitrogen) 8 mg/dL (7.0-18.7); Bilirubin, Total 0.1 mg/dL (0.3-1.2); Calc. Creatinine Clearance 149 mL/min (70-130); Calcium 8.5 mg/dL (7.8-10.44); Carbon Dioxide 22 mmol/L (22-29); Chloride 110 mmol/L (98-107); Globulin 3.3 g/dL (2.4-3.5); Glucose 80 mg/dL (70-105); Potassium 3.8 mmol/L (3.5-5.1); Sodium 142 mmol/L (136-145)
[2025-01-22] MEDS ORDERED: Iopamidol 300 61% 100 ML VIAL FS ONE (11:00)
[2025-01-22] MEDS: Naproxen 500 MG TAB PO PRN (12:09)
[2025-01-22] MEDS: Milk Of Magnesia 30 ML UDCUP PO SCH (18:36)
[2025-01-22] MEDS: Ondansetron PF 4 MG/2 ML Vial IVP PRN (19:39)
[2025-01-22] MEDS: Apixaban 5 MG TAB PO SCH (21:04)
[2025-01-22] MEDS: Acetaminophen 325 MG TAB PO PRN (21:05)
[2025-01-23 12:30] VITALS: BP 113/59; TEMP 98.4
[2025-01-23] MEDS: Mineral Oil ENEMA PR SCH (12:58)
[2025-01-29] MEDS ORDERED: Apixaban 5 MG TAB PO SCH (21:00)
== END 2025-01-23 14:30 | disposition home or self-care (01) | DRG 784 ==
LOC: CSHLD/OP 14:32 → UNDOADMOB 17:27 → CSHLD 17:27 → OBSVTOIN 18:16 → INTOOBSV 01-20 06:28 → CSHLD 01-20 06:28 → OBSVTOIN 01-20 06:28 → UNDOADMOB 01-20 06:28 → CSHPP 01-20 11:15 → CSHLD 01-20 11:15
PROVIDERS: ADMIT Family Medicine; ATTEND Family Medicine
PROC: 10D00Z1 Extraction of Products of Conception, Low, Open Approach (ICD-10-PCS; principal; 2025-01-20)
PROC: 0UT70ZZ Resection of Bilateral Fallopian Tubes, Open Approach (ICD-10-PCS; 2025-01-20)
DX: O99.02 Anemia complicating childbirth (principal); I82.890 Acute embolism and thrombosis of other specified veins; O34.211 Maternal care for low transverse scar from previous cesarean delivery; D50.9 Iron deficiency anemia, unspecified; Z37.0 Single live birth; Z3A.37 37 weeks gestation of pregnancy; O90.89 Other complications of the puerperium, not elsewhere classified; K59.00 Constipation, unspecified
CPT/HCPCS: 36415; 51702; 74018; 74150; 74160; 76819; 80048; 80053; 83735; 84100; 85025; 85027; 86780; 86850; 86900; 86901; 87340; 88302; 99285; J1756; J1885; J2274; J2405; J2590; J3010; J7050; Q9967